=== PATIENT | female | born 1995 | race African-American/Black ===

== ENCOUNTER 2023-06-20 15:59 | Emergency (ER) | payer OTHER ==
[2023-06-20 16:12] VITALS: RESP 20; TEMP 98; BMI 23.3
[2023-06-20 17:16] LABS: EPI CELLS >36 /uL (0-25.1); HYALINE CASTS 0 /uL (0-3.1); URINE APPEARANCE CLEAR; URINE BACTERIA 1777 /uL (0-1359); URINE BILIRUBIN NEGATIVE (NEGATIVE); URINE COLOR YELLOW; URINE GLUCOSE (UA) NEGATIVE (NEGATIVE); URINE KETONE NEGATIVE (NEGATIVE); URINE LEUK ESTERASE NEGATIVE (NEGATIVE); URINE NITRITE NEGATIVE (NEGATIVE); URINE PROTEIN NEGATIVE (NEGATIVE); URINE RBC 18 /uL (0-23.9); URINE UROBILINOGEN 0.2 mg/dL (0.2-1.0); URINE WBC 20 /uL (0-25.8)
[2023-06-20 17:23] LABS: BASO % 0.7 % (0-2.0); EOS % 0.8 % (0-4.5); HEMATOCRIT 33.5 % (32.4-45.2); HEMOGLOBIN 11.6 GM/dL (10.7-15.3); LYMPH % 19.3 % (8-40); MCH 31.2 pg (25.7-33.7); MCHC 34.7 g/dl (32.0-36.0); MEAN CELL VOLUME 90.1 fl (80-96); MEAN PLT VOLUME 7.6 fl (7.5-11.1); MONO % 9.3 % (3.8-10.2); NEUT % 69.9 % (42.8-82.8); PLATELET COUNT 306 10^3/uL (134-434); RBC 3.72 M/mm3 (3.60-5.2); RDW 14.2 % (11.6-15.6); WHITE BLOOD COUNT 12.1 K/mm3 (4.0-10.0)
[2023-06-20 17:31] LABS: INR 1.1 (0.83-1.09); PROTHROMBIN TIME (PATIENT) 12.8 SEC (9.7-13.0)
[2023-06-20 17:33] LABS: ACTIVATED PTT 30.2 SECONDS (25.2-36.5)
[2023-06-20 17:37] LABS: POTASSIUM 3.7 mmol/L (3.5-5.1)
[2023-06-20 17:40] LABS: ALBUMIN 3.4 g/dl (3.4-5.0); BLOOD UREA NITROGEN 8.2 mg/dL (7-18); CALCIUM 8.5 mg/dL (8.5-10.1)
[2023-06-20 17:43] LABS: CREATININE 0.6 mg/dL (0.55-1.3)
[2023-06-20 17:44] LABS: BILIRUBIN,TOTAL 0.2 mg/dL (0.2-1); TOT PROT 6.5 g/dl (6.4-8.2)
[2023-06-20 19:14] VITALS: BP 124/74; PULSE 71
== END 2023-06-20 20:19 | disposition home or self-care (01) ==
LOC: JER 15:59
DX: O20.9 Hemorrhage in early pregnancy, unspecified (principal); Z3A.14 14 weeks gestation of pregnancy
CPT/HCPCS: 36415; 76817-TC; 80053; 81003; 85025; 85610; 85730; 86850; 86900; 86901; 87086; 87186; 99284-25